=== PATIENT | female | born 1950 | race African-American/Black ===

== ENCOUNTER 2021-01-23 16:15 | Observation (INO) | payer OTHER ==
[~2021-01-23] VITALS: Ht 160 cm; Wt 61.8 kg
[2021-01-23] MEDS: SODIUM CHLORIDE 0.9% 1,000 ML IV SCH (03:40)
[~2021-01-23 16:15] MED LIST: CALC600T16; POTASIUM; TRIA25CA
[2021-01-23] MEDS ORDERED: SODIUM CHLORIDE 0.9% 1,000 ML IVB ONE (16:45)
[2021-01-23 18:58] LABS: Basophils # (auto) 0 10 ^3/uL (0-0.2); Basophils % (auto) 0.3 % (0.0-2.0); Eosinophils # (auto) 0 10 ^3/uL (0-0.8); Eosinophils % (auto) 0.2 % (0.0-7.0); Hematocrit 37.5 % (36.0-46.0); Hemoglobin 12.2 g/dL (12.2-16.2); Lymphocytes # (auto) 0.5 10 ^3/uL (0.4-5.4); Lymphocytes % (auto) 3.8 % (10.0-50.0); Mean Corpuscular Hemoglobin 24.3 pg (28.0-32.0); Mean Corpuscular Hgb Conc. 32.7 g/dL (32.0-36.0); Mean Corpuscular Volume 74.3 fL (80.0-100.0); Monocytes # (auto) 0.4 10 ^3/uL (0-1.3); Monocytes % (auto) 2.9 % (0.0-12.0); Neutrophils # (auto) 11.7 10 ^3/uL (1.6-8.6); Neutrophils % (auto) 92.8 % (37.0-80.0); Platelet Count (auto) 257 10^3/uL (140-450); Red Blood Cells 5.04 10^6/uL (4.0-5.20); Red Cell Distribution Width 17.1 % (11.8-14.3); White Blood Cell 12.6 10^3/uL (4.4-10.8)
[2021-01-23 19:12] LABS: Albumin 3.2 g/dL (3.4-5.0); Calcium 8.9 mg/dL (8.5-10.1); Potassium 3.7 mmol/L (3.5-5.1)
[2021-01-23 19:15] LABS: BUN/Creatinine Ratio 16.3; Bilirubin, Total 0.8 mg/dL (0.2-1.0); INR 1.02 (0.9-1.15); Partial Thromboplastin Time 25.4 sec (23.0-31.2); Total Protein 6.4 g/dL (6.4-8.2)
[2021-01-23 19:39] LABS: Magnesium 2.3 mg/dL (1.6-2.6)
[2021-01-23 20:33] LABS: Urine Bacteria FEW /hpf (None Seen); Urine Blood TRACE /uL (Negative); Urine Specific Gravity 1.018 (1.001-1.035); Urine WBC 6 /hpf (0 - 5)
[2021-01-23] MEDS ORDERED: ASPirin 81 mg TAB PO ONE ×2 (21:15→23:30)
[2021-01-23] MEDS ORDERED: cefTRIAXone 1GM/50ML D5W 50 ML IV ONE (21:45)
[2021-01-23] MEDS ORDERED: LACTATED RINGER S IV ONE (22:00)
[2021-01-23] MEDS ORDERED: ONDANSETRON HCL 4 MG/2 ML VIAL IV PRN (23:30)
[2021-01-23] MEDS ORDERED: NITROGLYCERIN 0.4 MG SL TAB SL PRN (23:30)
[2021-01-23] MEDS ORDERED: MORPHINE SULF INJ 2 MG/ML SYRINGE 1ML IV PRN (23:30)
[2021-01-24] MEDS: ENOXAPARIN SOD 60 MG/0.6 ML SYRINGE SC SCH ×2 (00:10→09:31)
[2021-01-24 03:30] VITALS: BP 115/85
[2021-01-24 04:56] VITALS: BP 115/85
[2021-01-24] MEDS ORDERED: FOLI1TAB6 PO (05:07)
[2021-01-24] MEDS ORDERED: KEP500T PO (05:07)
[2021-01-24] MEDS ORDERED: SIMV-8 PO (05:07)
[2021-01-24] MEDS ORDERED: ASPI-378 PO (05:07)
[2021-01-24] MEDS ORDERED: OMEG100078 PO (05:07)
[2021-01-24] MEDS ORDERED: HYDR1TAB97 PO (05:07)
[2021-01-24] MEDS ORDERED: FURO20TA3 PO (05:07)
[2021-01-24] MEDS ORDERED: MAGN400T40 PO (05:07)
[2021-01-24] MEDS ORDERED: POTA10TA51 PO (05:07)
[2021-01-24] MEDS ORDERED: COEN100C37 PO (05:07)
[2021-01-24 08:00] VITALS: BP 105/67
[2021-01-24 09:00] VITALS: BP 105/67
[2021-01-24] MEDS ORDERED: cefTRIAXone 1GM/50ML D5W 50 ML IV SCH (09:00)
[2021-01-24] MEDS ORDERED: LACTULOSE 20Gm/30ML SOLN PO ONE (09:30)
[2021-01-24] MEDS: SODIUM CHLORIDE 0.9% 1,000 ML IV SCH (09:31)
[2021-01-24 09:35] LABS: Eosinophils # (auto) 0.1 10 ^3/uL (0-0.8); Hemoglobin 10.9 g/dL (12.2-16.2); Mean Corpuscular Hemoglobin 24.6 pg (28.0-32.0); Mean Corpuscular Hgb Conc. 33.2 g/dL (32.0-36.0); Monocytes # (auto) 0.3 10 ^3/uL (0-1.3); Neutrophils # (auto) 6.1 10 ^3/uL (1.6-8.6); Red Cell Distribution Width 17.1 % (11.8-14.3)
[2021-01-24 09:37] LABS: Basophils # (auto) 0 10 ^3/uL (0-0.2); Basophils % (auto) 0.5 % (0.0-2.0); Eosinophils % (auto) 0.8 % (0.0-7.0); Hematocrit 32.7 % (36.0-46.0); Lymphocytes # (auto) 0.9 10 ^3/uL (0.4-5.4); Lymphocytes % (auto) 12.1 % (10.0-50.0); Monocytes % (auto) 4.6 % (0.0-12.0); Nucleated Red Blood Cells % 0.2 %; Platelet Count (auto) 227 10^3/uL (140-450); Red Blood Cells 4.42 10^6/uL (4.0-5.20); White Blood Cell 7.4 10^3/uL (4.4-10.8)
[2021-01-24 09:53] LABS: Calcium 8.6 mg/dL (8.5-10.1); Potassium 3.7 mmol/L (3.5-5.1)
[2021-01-24 09:57] LABS: BUN/Creatinine Ratio 14.1
[2021-01-24] MEDS ORDERED: METOPROLOL TARTRATE 25 MG TAB PO SCH (10:00)
[2021-01-24] MEDS ORDERED: levETIRAcetam 500 MG TAB PO SCH (10:00)
[2021-01-24] MEDS ORDERED: ASPirin-EC 81 mg tab PO SCH (10:00)
[2021-01-24 13:21] VITALS: BP 93/61
[2021-01-24] MEDS ORDERED: ATORVASTATIN 20 MG TAB PO SCH (22:00)
== END 2021-01-24 15:30 | disposition home or self-care (01) ==
LOC: EDUNIT# 16:15 → EDBD 16:15 → ER 16:17 → TELE 23:32 → TELE-CENTR 01-24 04:24
PROVIDERS: ADMIT Hospitalist; ATTEND Hospitalist
DX: I24.9 Acute ischemic heart disease, unspecified (principal); Z20.822 Contact with and (suspected) exposure to COVID-19; E86.0 Dehydration; N39.0 Urinary tract infection, site not specified; E78.5 Hyperlipidemia, unspecified; G40.909 Epilepsy, unspecified, not intractable, without status epilepticus; I10 Essential (primary) hypertension; E78.00 Pure hypercholesterolemia, unspecified; M19.90 Unspecified osteoarthritis, unspecified site; I99.8 Other disorder of circulatory system; I67.2 Cerebral atherosclerosis; D56.0 Alpha thalassemia; Z98.84 Bariatric surgery status; Z90.710 Acquired absence of both cervix and uterus; Z96.642 Presence of left artificial hip joint; Z87.440 Personal history of urinary (tract) infections; Z79.82 Long term (current) use of aspirin
CPT/HCPCS: 36415; 70450; 71045; 80048; 80053; 80061; 81001; 83036; 83735; 83880; 84484; 85025; 85610; 85730; 87426; 93005; 93306; 96361; 96365; 96366; 96372; 99285; G0378; J0696; J1650; J7030

== ENCOUNTER 2021-02-10 20:53 | Emergency (ER) | payer OTHER ==
[~2021-02-10] VITALS: Ht 167.6 cm; Wt 62.1 kg
[~2021-02-10 20:53] MED LIST changes: +ASPI-378 PO; -CALC600T16; +COEN100C37 PO; +FOLI1TAB6 PO; +FURO20TA3 PO; +HYDR1TAB97 PO; +KEP500T PO; +MAGN400T40 PO; +OMEG100078 PO; +POTA10TA51 PO; -POTASIUM; +SIMV-8 PO; -TRIA25CA
[2021-02-10 22:15] LABS: Eosinophils # (auto) 0 10 ^3/uL (0-0.8); Monocytes # (auto) 0.4 10 ^3/uL (0-1.3); Neutrophils # (auto) 1.9 10 ^3/uL (1.6-8.6)
[2021-02-10 22:18] LABS: Basophils # (auto) 0 10 ^3/uL (0-0.2); Basophils % (auto) 1.2 % (0.0-2.0); Eosinophils % (auto) 0.9 % (0.0-7.0); Hematocrit 35.3 % (36.0-46.0); Hemoglobin 11.9 g/dL (12.2-16.2); Lymphocytes # (auto) 1.6 10 ^3/uL (0.4-5.4); Lymphocytes % (auto) 39.3 % (10.0-50.0); Mean Corpuscular Hemoglobin 24.8 pg (28.0-32.0); Mean Corpuscular Hgb Conc. 33.7 g/dL (32.0-36.0); Mean Corpuscular Volume 73.7 fL (80.0-100.0); Monocytes % (auto) 10.2 % (0.0-12.0); Neutrophils % (auto) 48.4 % (37.0-80.0); Nucleated Red Blood Cells % 0.1 %; Platelet Count (auto) 264 10^3/uL (140-450); Red Blood Cells 4.79 10^6/uL (4.0-5.20); Red Cell Distribution Width 16.9 % (11.8-14.3)
[2021-02-10 22:25] LABS: Albumin 3.1 g/dL (3.4-5.0); Anion Gap 4 (5-15); Blood Urea Nitrogen 9 mg/dL (7-18); Calcium 8.9 mg/dL (8.5-10.1); Carbon Dioxide 24 mmol/L (21-32); Chloride 113 mmol/L (98-107); Glucose 76 mg/dL (74-106); Magnesium 2.4 mg/dL (1.6-2.6); Sodium 141 mmol/L (136-145)
[2021-02-10 22:27] LABS: Alanine Aminotransferase 36 U/L (13-56); Aspartate Aminotransferase 34 U/L (15-37); GFR African American 88 mL/min; GFR Non-African American 73 mL/min
[2021-02-10 22:32] LABS: Alkaline Phosphatase 92 U/L (45-117); Bilirubin, Total 0.4 mg/dL (0.2-1.0); INR 1.02 (0.9-1.15); Total Protein 6.4 g/dL (6.4-8.2)
[2021-02-11 05:04] VITALS: BP 110/63
[2021-02-11] MEDS ORDERED: levETIRAcetam 500 MG TAB PO ONE (05:30)
== END 2021-02-11 06:30 | disposition home or self-care (01) ==
LOC: ER 20:58
DX: G40.909 Epilepsy, unspecified, not intractable, without status epilepticus (principal); M25.512 Pain in left shoulder; I10 Essential (primary) hypertension; E78.5 Hyperlipidemia, unspecified; Z90.710 Acquired absence of both cervix and uterus; Z79.82 Long term (current) use of aspirin; Z79.899 Other long term (current) drug therapy
CPT/HCPCS: 36415; 70450; 71045; 73030; 80053; 83735; 83880; 84484; 85025; 85610; 93005

== ENCOUNTER 2021-09-07 17:09 | Emergency (ER) | payer OTHER ==
[~2021-09-07] VITALS: Ht 167.6 cm; Wt 61.2 kg
[2021-09-07 17:14] VITALS: BP 128/53
[2021-09-07 19:32] LABS: Basophils # (auto) 0 10 ^3/uL (0-0.2); Eosinophils # (auto) 0 10 ^3/uL (0-0.8); Lymphocytes # (auto) 1.4 10 ^3/uL (0.4-5.4); Monocytes # (auto) 0.2 10 ^3/uL (0-1.3); White Blood Cell 3.1 10^3/uL (4.4-10.8)
[2021-09-07 19:35] LABS: Basophils % (auto) 0.7 % (0.0-2.0); Hematocrit 39.8 % (36.0-46.0); Hemoglobin 13.1 g/dL (12.2-16.2); Lymphocytes % (auto) 47.2 % (10.0-50.0); Mean Corpuscular Hemoglobin 24.2 pg (28.0-32.0); Mean Corpuscular Hgb Conc. 32.8 g/dL (32.0-36.0); Mean Corpuscular Volume 73.6 fL (80.0-100.0); Monocytes % (auto) 7.4 % (0.0-12.0); Neutrophils # (auto) 1.3 10 ^3/uL (1.6-8.6); Neutrophils % (auto) 43.7 % (37.0-80.0); Nucleated Red Blood Cells % 0.3 %; Red Blood Cells 5.41 10^6/uL (4.0-5.20); Red Cell Distribution Width 17.2 % (11.8-14.3)
[2021-09-07 20:00] LABS: Albumin 3.7 g/dL (3.4-5.0); Calcium 9.2 mg/dL (8.5-10.1); Potassium 4.1 mmol/L (3.5-5.1)
[2021-09-07 20:05] LABS: BUN/Creatinine Ratio 16.3; Bilirubin, Total 0.4 mg/dL (0.2-1.0); Total Protein 6.8 g/dL (6.4-8.2)
[2021-09-07 23:07] LABS: Urine Bacteria FEW /hpf (None Seen); Urine Blood Negative /uL (Negative); Urine Mucus FEW (None Seen); Urine Specific Gravity 1.026 (1.001-1.035); Urine WBC 1 /hpf (0 - 5)
== END 2021-09-07 21:34 | disposition home or self-care (01) ==
LOC: ER 17:09
DX: R00.1 Bradycardia, unspecified (principal); I10 Essential (primary) hypertension; J44.9 Chronic obstructive pulmonary disease, unspecified; E78.5 Hyperlipidemia, unspecified; Z90.710 Acquired absence of both cervix and uterus; Z79.82 Long term (current) use of aspirin; Z79.899 Other long term (current) drug therapy
CPT/HCPCS: 36415; 71046; 80053; 81001; 84484; 85025; 93005

== ENCOUNTER 2021-12-25 16:33 | Inpatient (IN) | payer OTHER ==
[~2021-12-25] VITALS: Ht 167.6 cm; Wt 64.2 kg
[2021-12-25 19:33] LABS: Basophils # (auto) 0 10 ^3/uL (0-0.2); Basophils % (auto) 0.6 % (0.0-2.0); Eosinophils # (auto) 0 10 ^3/uL (0-0.8); Lymphocytes # (auto) 1.3 10 ^3/uL (0.4-5.4); Monocytes # (auto) 0.4 10 ^3/uL (0-1.3); White Blood Cell 3.5 10^3/uL (4.4-10.8)
[2021-12-25 19:36] LABS: Eosinophils % (auto) 0.8 % (0.0-7.0); Hematocrit 39.5 % (36.0-46.0); Hemoglobin 13.7 g/dL (12.2-16.2); Lymphocytes % (auto) 37.2 % (10.0-50.0); Mean Corpuscular Hemoglobin 26.5 pg (28.0-32.0); Mean Corpuscular Hgb Conc. 34.6 g/dL (32.0-36.0); Mean Corpuscular Volume 76.6 fL (80.0-100.0); Monocytes % (auto) 10.4 % (0.0-12.0); Neutrophils # (auto) 1.8 10 ^3/uL (1.6-8.6); Nucleated Red Blood Cells % 0.4 %; Red Blood Cells 5.16 10^6/uL (4.0-5.20); Red Cell Distribution Width 17.8 % (11.8-14.3)
[2021-12-25 19:47] LABS: Alanine Aminotransferase 29 U/L (13-56); Albumin 3.1 g/dL (3.4-5.0); Anion Gap 7 (5-15); Aspartate Aminotransferase 27 U/L (15-37); BUN/Creatinine Ratio 12.2; Blood Urea Nitrogen 9 mg/dL (7-18); Calcium 9.4 mg/dL (8.5-10.1); Carbon Dioxide 25 mmol/L (21-32); Chloride 108 mmol/L (98-107); GFR African American 99 mL/min; GFR Non-African American 82 mL/min; Glucose 89 mg/dL (74-106); Potassium 4.3 mmol/L (3.5-5.1); Sodium 140 mmol/L (136-145)
[2021-12-25 19:51] LABS: Alkaline Phosphatase 84 U/L (45-117); Bilirubin, Total 0.4 mg/dL (0.2-1.0); Total Protein 6.2 g/dL (6.4-8.2)
[2021-12-25] MEDS ORDERED: HYDROcodone-ACET 5/325MG TAB PO PRN (21:30)
[2021-12-25] MEDS ORDERED: ONDANSETRON HCL 4 MG/2 ML VIAL IV PRN (21:30)
[2021-12-25] MEDS ORDERED: hydrALAZINE HCL 20 MG/ML VL IV PRN (21:30)
[2021-12-25] MEDS ORDERED: ACETAMINOPHEN 325 MG TAB PO PRN (21:30)
[2021-12-25] MEDS: SODIUM CHLOR 0.9% PF (SALINE LOCK) 10ML VIAL/SYR IV SCH (22:00)
[2021-12-25] MEDS ORDERED: levETIRAcetam 500 MG/5ML INJ IV ONE (22:40)
[2021-12-25] MEDS: ATORVASTATIN 20 MG TAB PO SCH (22:48)
[2021-12-25] MEDS ORDERED: NITROGLYCERIN 0.4 MG SL TAB SL PRN (23:45)
[2021-12-25] MEDS ORDERED: MORPHINE SULFATE INJECTION 2 MG/ML SYRG IV PRN (23:45)
[2021-12-26 03:50] VITALS: BP 137/71
[2021-12-26] MEDS ORDERED: PRIM50TA27 PO (04:28)
[2021-12-26] MEDS ORDERED: METO25TA5 PO (04:28)
[2021-12-26] MEDS ORDERED: APIX2.5T PO (04:28)
[2021-12-26] MEDS ORDERED: BACL10TA PO (04:28)
[2021-12-26] MEDS ORDERED: HYDR1TAB97 PO (04:28)
[2021-12-26] MEDS ORDERED: POTA1TAB61 PO (04:28)
[2021-12-26] MEDS ORDERED: LEVE500T32 PO (04:28)
[2021-12-26 05:10] VITALS: BP 137/71
[2021-12-26] MEDS: SODIUM CHLOR 0.9% PF (SALINE LOCK) 10ML VIAL/SYR IV SCH ×3 (07:42→21:24)
[2021-12-26 08:08] LABS: Basophils # (auto) 0 10 ^3/uL (0-0.2); Eosinophils # (auto) 0.1 10 ^3/uL (0-0.8); Red Cell Distribution Width 17.8 % (11.8-14.3)
[2021-12-26 08:10] LABS: Basophils % (auto) 0.7 % (0.0-2.0); Eosinophils % (auto) 1.5 % (0.0-7.0); Hematocrit 37.9 % (36.0-46.0); Hemoglobin 12.9 g/dL (12.2-16.2); Lymphocytes # (auto) 1.3 10 ^3/uL (0.4-5.4); Mean Corpuscular Hgb Conc. 33.9 g/dL (32.0-36.0); Mean Corpuscular Volume 76.8 fL (80.0-100.0); Monocytes # (auto) 0.4 10 ^3/uL (0-1.3); Monocytes % (auto) 11.5 % (0.0-12.0); Neutrophils # (auto) 1.6 10 ^3/uL (1.6-8.6); Neutrophils % (auto) 46.3 % (37.0-80.0); Nucleated Red Blood Cells % 0.2 %; Red Blood Cells 4.94 10^6/uL (4.0-5.20); White Blood Cell 3.4 10^3/uL (4.4-10.8)
[2021-12-26 08:29] LABS: Potassium 4.2 mmol/L (3.5-5.1)
[2021-12-26 08:40] LABS: Albumin 2.8 g/dL (3.4-5.0); BUN/Creatinine Ratio 11.1; Bilirubin, Total 0.4 mg/dL (0.2-1.0); Calcium 9.4 mg/dL (8.5-10.1); Total Protein 5.8 g/dL (6.4-8.2)
[2021-12-26 09:05] VITALS: BP 131/89
[2021-12-26] MEDS: DOCUSATE SOD 100 MG CAP PO PRN ×2 (09:50→21:25)
[2021-12-26] MEDS: ASPirin 81 mg TAB PO SCH (09:50)
[2021-12-26] MEDS: FAMOTIDINE (10MG/ML) 2ML VL IV SCH (09:50)
[2021-12-26] MEDS ORDERED: LACTULOSE 20Gm/30ML SOLN PO ONE (12:44)
[2021-12-26] MEDS ORDERED: POLYETHYLENE GLYCOL 17 GM PWDR PO ONE (12:44)
[2021-12-26 13:00] VITALS: BP 125/83
[2021-12-26 13:05] LABS: Urine Bacteria FEW /hpf (None Seen); Urine Blood Negative /uL (Negative); Urine Specific Gravity 1.008 (1.001-1.035); Urine WBC 2 /hpf (0 - 5)
[2021-12-26 17:02] VITALS: BP 111/74
[2021-12-26] MEDS ORDERED: LORazepam 2MG/ML-1ML VIAL IV PRN (21:00)
[2021-12-26] MEDS: ATORVASTATIN 20 MG TAB PO SCH (21:25)
[2021-12-26] MEDS: ENOXAPARIN SOD 100 MG/1 ML SYRINGE SC SCH (21:25)
[2021-12-26 22:00] VITALS: BP 96/73
[2021-12-27 04:59] VITALS: BP 116/73
[2021-12-27] MEDS: SODIUM CHLOR 0.9% PF (SALINE LOCK) 10ML VIAL/SYR IV SCH ×2 (05:46→14:00)
[2021-12-27 08:32] VITALS: BP 113/70
[2021-12-27] MEDS: FAMOTIDINE (10MG/ML) 2ML VL IV SCH (08:51)
[2021-12-27] MEDS: ENOXAPARIN SOD 100 MG/1 ML SYRINGE SC SCH (08:51)
[2021-12-27] MEDS: ASPirin 81 mg TAB PO SCH (10:13)
[2021-12-27 12:43] VITALS: BP 102/72
[2021-12-27] MEDS ORDERED: DOCU100C10 PO (12:44)
[2021-12-27 17:00] VITALS: BP 105/70
[2021-12-27 20:17] VITALS: BP 105/70
== END 2021-12-27 21:35 | disposition home health service (06) | DRG 101 ==
LOC: EDBD 16:33 → ER 16:36 → TELE 23:42 → TELE-WESTW 12-26 03:08
PROVIDERS: ADMIT Nurse Practitioner Family; ATTEND Internal Medicine
DX: G40.909 Epilepsy, unspecified, not intractable, without status epilepticus (principal); I48.0 Paroxysmal atrial fibrillation; D72.819 Decreased white blood cell count, unspecified; E66.9 Obesity, unspecified; Z68.22 Body mass index [BMI] 22.0-22.9, adult; E78.5 Hyperlipidemia, unspecified; J44.9 Chronic obstructive pulmonary disease, unspecified; M81.0 Age-related osteoporosis without current pathological fracture; I11.9 Hypertensive heart disease without heart failure; K59.00 Constipation, unspecified; K21.9 Gastro-esophageal reflux disease without esophagitis; R00.1 Bradycardia, unspecified; Z20.822 Contact with and (suspected) exposure to COVID-19; Z79.01 Long term (current) use of anticoagulants; Z79.82 Long term (current) use of aspirin; Z79.899 Other long term (current) drug therapy; Z82.49 Family history of ischemic heart disease and other diseases of the circulatory system; Z83.3 Family history of diabetes mellitus; Z90.710 Acquired absence of both cervix and uterus; Z98.84 Bariatric surgery status; Z87.440 Personal history of urinary (tract) infections
CPT/HCPCS: 36415; 70450; 70551; 71045; 72170; 80053; 80061; 81001; 82962; 83605; 84443; 84484; 85025; 87040; 87081; 87086; 93005; 93306; 95819; 96365; 97163; G0378; J2405; J3490; J7060